=== PATIENT | male | born 1995 | race Two or more races ===

== ENCOUNTER 2019-10-10 17:17 | Emergency (ER) | payer SELFPAY ==
[~2019-10-10] VITALS: Ht 177.8 cm; Wt 91.0 kg
[2019-10-11 00:59] LABS: BASOPHILS % 0.5 % (0.0-2.0); EOSINOPHILS % 0.2 % (0.0-5.0); HEMATOCRIT. 47.4 % (42.0-52.0); MEAN CORPUSCULAR VOLUME 88.8 fL (80.0-94.0); MEAN PLATELET VOLUME 7.1 fl (7.4-10.4); MONOCYTES % 4.5 % (2.0-8.0); NEUTROPHILS % 69.8 % (40.0-76.0); PLATELET 335 x1000/uL (130-400); RED BLOOD CELL COUNT 5.33 mill/uL (4.7-6.1); RED CELL DISTRIBUTION WIDTH 13.6 % (11.6-14.6)
[2019-10-11 01:12] LABS: CHLORIDE 106 mEq/L (98-107)
[2019-10-11 01:16] LABS: ETHANOL BLOOD 113 mg/dL
[2019-10-11 01:41] LABS: *BENZODIAZEPINES SCREEN URINE NEGATIVE (NEGATIVE); *COCAINE SCREEN URINE NEGATIVE (NEGATIVE); METHADONE URINE SCREEN NEGATIVE (NEGATIVE)
[2019-10-11 01:42] LABS: *AMPHETAMINES SCREEN URINE NEGATIVE (NEGATIVE); *BARBITURATES SCREEN URINE NEGATIVE (NEGATIVE); CANNABINOID URINE SCREEN NEGATIVE (NEGATIVE); OPIATES URINE SCREEN NEGATIVE (NEGATIVE); PHENCYCLIDINE URINE SCREEN NEGATIVE (NEGATIVE)
[2019-10-11 04:23] VITALS: BP 118/74
== END 2019-10-11 04:27 | disposition home or self-care (01) ==
LOC: ER 17:17
DX: F10.129 Alcohol abuse with intoxication, unspecified (principal); F15.10 Other stimulant abuse, uncomplicated; F12.10 Cannabis abuse, uncomplicated; Y90.5 Blood alcohol level of 100-119 mg/100 ml; Z90.49 Acquired absence of other specified parts of digestive tract
CPT/HCPCS: 36415; 71045; 80053; 80305; 80307; 80320; 80329; 82140; 82962; 85025; 93005; 99284; G0480